=== PATIENT | male | born 1980 | race African-American/Black ===

== ENCOUNTER 2020-01-10 02:43 | Emergency (ER) | payer MEDICAID, OTHER ==
[~2020-01-10] VITALS: Ht 182.9 cm; Wt 83.9 kg
[2020-01-10] MEDS ORDERED: LET TOPICAL SOLUTION 8 ML UDC ONE (03:56)
[2020-01-10] MEDS ORDERED: NEOMY/BACITRA/POLYMYXIN B OINT UD PACKET TP ONE ×3 (04:54→05:00)
[2020-01-10] MEDS ORDERED: SODIUM BICARBONATE 4.2 % (NEUT) 5 ML VIAL TP ONE (05:00)
[2020-01-10] MEDS ORDERED: LIDOCAINE HCL 2% 20 ML VIAL TP ONE (05:00)
[2020-01-10] MEDS ORDERED: LET TOPICAL SOLUTION 8 ML UDC TP ONE (05:00)
[2020-01-10] MEDS ORDERED: HYDROCODONE/APAP 5-325MG TABLET ONE (05:03)
[2020-01-10] MEDS ORDERED: SULFAMETH/TRIMETH 800/160 MG TABLET ONE (05:06)
[2020-01-10 05:09] VITALS: BP 101/55
--- NOTE | 2020-01-10 05:09 | NUR ---
Patient discharged to home in stable conditon. Written and verbal after care instructions given. Patient verbalizes understanding of instructions. patient left with stable gait.
[2020-01-10] MEDS ORDERED: SULFAMETH/TRIMETH 800/160 MG TABLET PO ONE (05:15)
[2020-01-10] MEDS ORDERED: HYDROCODONE/APAP 5-325MG TABLET PO ONE (05:15)
== END 2020-01-10 05:10 | disposition home or self-care (01) ==
LOC: ER 02:43
DX: M79.5 Residual foreign body in soft tissue (principal)
CPT/HCPCS: 73140; 99284; J3490; A4663

== ENCOUNTER 2020-10-23 03:13 | Emergency (ER) | payer MEDICAID ==
[~2020-10-23] VITALS: Ht 182.9 cm; Wt 83.9 kg
[2020-10-23] MEDS ORDERED: AZITHROMYCIN 250 MG TABLET PO ONE (04:30)
[2020-10-23] MEDS ORDERED: CEFTRIAXONE 500 MG VIAL IM ONE (04:30)
[2020-10-23] MEDS ORDERED: CEFTRIAXONE 500 MG VIAL IV ONE (04:30)
[2020-10-23] MEDS ORDERED: AZITHROMYCIN 250 MG TABLET ONE (04:34)
[2020-10-23] MEDS ORDERED: CEFTRIAXONE 500 MG VIAL ONE (04:34)
[2020-10-23] MEDS ORDERED: LIDOCAINE HCL 1% 20 ML VIAL ONE (04:35)
--- NOTE | 2020-10-23 04:59 | NUR ---
PT ELOPED, DID NOT WAIT FOR ACI. AMBULATED W/O DIFF/TOOK ALL BELONGINGS.
--- NOTE | 2020-10-23 05:00 | NUR ---
PHARMACY NOTE; INITIALLY DR ORDERED ROCEFIN 250 MG IV PER MISTAKE. I BY MISTAKE CHARTED THAT IT WAS ADMISTERED. I THEN CHARTED ON ROCEFIN 250 MG IM INJECTION ADMINISTRASION. WHICH PT RECEIVED TO RT BUTTOCK.
--- NOTE | 2020-10-23 05:02 | NUR ---
ALL MEDS ADMINISTERED, PT AWAITING FOR LAB RESULTS.
[2020-11-01 09:58] LABS: *GC NAA Positive; *TRIC.VAG. NAA Negative
== END 2020-10-23 04:59 | disposition left against medical advice (07) ==
LOC: ER 03:23
DX: Z20.2 Contact with and (suspected) exposure to infections with a predominantly sexual mode of transmission (principal)
CPT/HCPCS: 87491; 96372; 99283; J0696; J3490; A4663; Q0144

== ENCOUNTER 2022-01-07 17:08 | Emergency (ER) | payer MEDICAID ==
[~2022-01-07] VITALS: Ht 182.9 cm; Wt 86.2 kg
--- NOTE | 2022-01-07 18:00 | NUR ---
Pt provided urine sample, sent to lab.
[2022-01-07] MEDS ORDERED: FLUORESCEIN SODIUM 1 MG STRIP OP ONE (19:00)
[2022-01-07] MEDS ORDERED: FLUORESCEIN SODIUM 1 MG STRIP ONE (19:11)
[2022-01-07] MEDS ORDERED: TETRACAINE HCL 0.5% OPHT DROP 2 ML BOTTLE ONE (19:15)
[2022-01-07] MEDS ORDERED: TETRACAINE HCL 0.5% OPHT DROP 2 ML BOTTLE OP ONE (19:15)
[2022-01-07] MEDS ORDERED: VALA10002 PO (19:24)
[2022-01-07] MEDS ORDERED: AZITHROMYCIN 250 MG TABLET PO ONE (19:30)
[2022-01-07] MEDS ORDERED: AZITHROMYCIN 250 MG TABLET ONE (19:46)
--- NOTE | 2022-01-07 19:47 | NUR ---
Patient discharged to home in stable condition. Written and verbal after care instructions given. Patient verbalizes understanding of instructions. Stressed follow up or return to ER for worsening s/s.
[2022-01-07 19:48] VITALS: BP 128/77
== END 2022-01-07 19:49 | disposition home or self-care (01) ==
LOC: ER 17:13
DX: H10.9 Unspecified conjunctivitis (principal); A64 Unspecified sexually transmitted disease
CPT/HCPCS: A4663; Q0144

== ENCOUNTER 2024-06-23 04:31 | Emergency (ER) | payer MEDICAID, OTHER ==
[~2024-06-23] VITALS: Ht 182.9 cm; Wt 90.7 kg
[~2024-06-23 04:31] MED LIST: VALA10002 PO
[2024-06-23] MEDS: TDAP DIPH,PERTUSS,TET VAC/PF 0.5 ML DISP.SYRIN IM ONE (05:06)
[2024-06-23] MEDS ORDERED: CEFTRIAXONE 1 G VIAL ONE (05:09)
[2024-06-23] MEDS ORDERED: SULFAMETH/TRIMETH 800/160 MG TABLET ONE (05:09)
[2024-06-23] MEDS ORDERED: LIDOCAINE HCL 1% 20 ML VIAL ONE (05:09)
[2024-06-23] MEDS ORDERED: IBUPROFEN 600 MG TABLET ONE (05:09)
[2024-06-23] MEDS ORDERED: ONDANSETRON ODT 4 MG TAB.RAPDIS ONE (05:09)
[2024-06-23] MEDS ORDERED: HYDROCODONE/APAP 5-325MG TABLET ONE (05:10)
[2024-06-23] MEDS: CEFTRIAXONE 1 G VIAL IM ONE (05:17)
[2024-06-23] MEDS: ONDANSETRON ODT 4 MG TAB.RAPDIS SL ONE (05:17)
[2024-06-23] MEDS: IBUPROFEN 600 MG TABLET PO ONE (05:17)
[2024-06-23] MEDS: HYDROCODONE/APAP 5-325MG TABLET PO ONE (05:17)
[2024-06-23] MEDS: SULFAMETH/TRIMETH 800/160 MG TABLET PO ONE (05:17)
[2024-06-23] MEDS ORDERED: SULF1TAB48 PO (06:35)
[2024-06-23] MEDS ORDERED: HYDR-4209 PO (06:35)
[2024-06-23] MEDS ORDERED: CEPH500T PO (06:35)
[2024-06-23] MEDS ORDERED: HYDR-3980 PO (06:46)
[2024-06-23 06:52] VITALS: BP 126/85; O2SAT 97
== END 2024-06-23 06:52 | disposition home or self-care (01) ==
LOC: ER 04:37
DX: L03.115 Cellulitis of right lower limb (principal); J45.909 Unspecified asthma, uncomplicated; F17.200 Nicotine dependence, unspecified, uncomplicated; Z98.890 Other specified postprocedural states; Z79.891 Long term (current) use of opiate analgesic; Z79.899 Other long term (current) drug therapy
CPT/HCPCS: 99285; 93971; 96372; J0696; J3490; A4606; A4663; Q0162

== ENCOUNTER 2024-06-25 04:08 | Emergency (ER) | payer MEDICAID ==
[~2024-06-25] VITALS: Ht 182.9 cm; Wt 90.7 kg
[~2024-06-25 04:08] MED LIST changes: +CEPH500T PO; +HYDR-3980 PO; +SULF1TAB48 PO
[2024-06-25 04:50] LABS: BASOPHILS % (AUTO) 0.2 % (0.0-2.0); EOSINOPHILS # (AUTO) 0.7 K/uL (0.0-0.7); EOSINOPHILS % (AUTO) 3.4 % (0.0-7.0); HEMATOCRIT 37.4 % (36.7-47.1); HEMOGLOBIN 12.1 g/dL (12.5-16.3); LYMPHOCYTES # (AUTO) 1.7 K/uL (0.8-4.8); LYMPHOCYTES % (AUTO) 8.5 % (20.5-51.5); MEAN CORPUSCULAR HEMOGLOBIN 25.1 uug (23.8-33.4); MEAN CORPUSCULAR HGB CONC 32 g/dL (32.5-36.3); MEAN CORPUSCULAR VOLUME 77.3 fL (73.0-96.2); MONOCYTES # (AUTO) 1.3 K/uL (0.1-1.30); MONOCYTES % (AUTO) 6.4 % (0.0-11.0); NEUTROPHILS # (AUTO) 16.6 K/uL (1.8-8.9); NEUTROPHILS % (AUTO) 81.5 % (38.5-71.5); PLATELET COUNT (AUTO) 212 K/uL (152-348); RED BLOOD CELL COUNT(AUTO) 4.84 MIL/uL (4.06-5.63); WHITE BLOOD COUNT (AUTO) 20.4 K/uL (3.6-10.2)
[2024-06-25] MEDS: IV NORMAL SALINE 1000 ML BAG IV ONE (05:05)
[2024-06-25 05:13] LABS: ALBUMIN 3.1 g/dL (3.4-5.0); BILIRUBIN,DIRECT 0.1 mg/dL (0.0-0.2); BILIRUBIN,TOTAL 0.4 mg/dL (0.2-1.0); POTASSIUM 3.7 mmol/L (3.5-5.1); TOTAL PROTEIN, SERUM 8.1 g/dL (6.4-8.2)
[2024-06-25] MEDS ORDERED: CEFTRIAXONE 1 G VIAL ONE (05:13)
[2024-06-25] MEDS: CEFTRIAXONE 2 G in IV DEXTROSE 5% 100 ML IV ONE (05:15)
[2024-06-25 05:39] LABS: DIFFERENTIAL COMMENT 1
[2024-06-25] MEDS ORDERED: IOHEXOL 300MG/ML 100 ML INFUS..BTL ONE (05:58)
[2024-06-25] MEDS ORDERED: SWABABLE VALVE TRANSFER SET EA MC ONE (05:58)
[2024-06-25] MEDS ORDERED: IV NORMAL SALINE 250 ML IV ONE (05:59)
[2024-06-25] MEDS ORDERED: SULF1TAB48 PO (09:15)
[2024-06-25 09:34] VITALS: BP 124/69; TEMP 97.9; O2SAT 100
[2024-06-25] MEDS ORDERED: VANCOMYCIN IV 200 ML ONE (22:26)
[2024-06-25] MEDS ORDERED: VANCOMYCIN HCL 500 MG VIAL ONE (22:28)
[2024-06-28] MEDS ORDERED: LIDOCAINE 1%-EPI 1:100,000 20 ML VIAL ONE (20:29)
== END 2024-06-25 09:30 | disposition home or self-care (01) ==
LOC: ER 04:13
DX: L03.115 Cellulitis of right lower limb (principal); J45.909 Unspecified asthma, uncomplicated; F17.200 Nicotine dependence, unspecified, uncomplicated; Z98.890 Other specified postprocedural states; Z79.891 Long term (current) use of opiate analgesic; Z79.899 Other long term (current) drug therapy
CPT/HCPCS: 99285; 96365; 73701; 80076; 80048; 85025; 87040; 36415; 83605; J0696; Q9967; J3370; J7040; A4606; A4663

== ENCOUNTER 2024-06-25 15:56 | Inpatient (IN) | payer MEDICAID ==
[~2024-06-25] VITALS: Ht 180.3 cm; Wt 90.7 kg
--- NOTE | 2024-06-25 16:47 | NUR ---
returning patient from this morning with cellulitis to right lower extremity, alert and oriented x4, iv placement at this time
--- NOTE | 2024-06-25 16:54 | NUR ---
report zacharyt renita CONDON rn at this time, patient to go to room 322
[2024-06-25] MEDS ORDERED: ONDANSETRON 4 MG/2 ML VIAL ONE (17:00)
[2024-06-25] MEDS ORDERED: MORPHINE SULFATE 4 MG/1 ML DISP.SYRIN ONE (17:00)
[2024-06-25] MEDS: MORPHINE SULFATE 4 MG/1 ML DISP.SYRIN IV ONE (17:07)
[2024-06-25] MEDS: ONDANSETRON 4 MG/2 ML VIAL IV ONE (17:07)
--- NOTE | 2024-06-25 17:36 | NUR ---
patient transported at this time
[2024-06-25] MEDS ORDERED: MAGNESIUM HYDROXIDE 30 ML LIQUID UDC PO PRN (19:45)
[2024-06-25] MEDS ORDERED: ACETAMINOPHEN 325 MG TABLET PO PRN (19:45)
[2024-06-25] MEDS ORDERED: ONDANSETRON 4 MG/2 ML VIAL IV PRN (19:45)
[2024-06-25 20:55] VITALS: BP 107/57; TEMP 99.2; O2SAT 98
[2024-06-25] MEDS: HEPARIN SODIUM,PORCINE 5,000 UNITS/ML VIAL SQ SCH (21:32)
[2024-06-25] MEDS: HYDROCODONE/APAP 10-325 MG TABLET PO PRN (22:06)
[2024-06-25] MEDS ORDERED: PIPERACILLIN/TAZOBACTAM/D5W 50 ML IV ONE (22:38)
[2024-06-26] MEDS: VANCOMYCIN HCL IV SCH (00:03)
[2024-06-26] MEDS: NORMAL SALINE IV SCH (00:03)
[2024-06-26] MEDS: PIPERACILLIN SODIUM/TAZOBACTAM 3.375 G in IV DEXTROSE 5% 50 ML IV SCH ×2 (02:36→08:40)
--- NOTE | 2024-06-26 05:57 | NUR ---
Pt received in bed. Alert oriented x4. IV site on his R hand patent He received all his meds. requested pain medication for his R ALPHONSE pain. after medication pt had a rest. IV antibiotic vancomycin was prepared and could not scan, put an manual barcode lot number [id number] exp March 2026.Pt tolerated well. Physical assessment was done, Care plan was done. Will monitored..
[2024-06-26] MEDS: PANTOPRAZOLE SODIUM 40 MG TABLET.DR PO SCH (07:01)
--- NOTE | 2024-06-26 07:05 | NUR ---
pt's temperature was 100.4. he refused Tylenol. upcoming nurse endorsed.
[2024-06-26 07:08] VITALS: BP 123/71; TEMP 100.4; O2SAT 99
--- NOTE | 2024-06-26 07:30 | NUR ---
0730 PT LAYING IN THE BED A/O X4 ON RA NO SOB OR DISTRESS NOTED, COMPLAIN OF PAIN IN THE RIGHT LOWER EXTREMITY. RLE IS SWOLLEN WITH ULCER PRESENTS, WARM TO TOUCH. IV SITE IS INTACT AND PATENT. SAFETY MEASURES IN PLACE, CALL LIGHT IN REACH. 0800 NORCO WAS GIVEN FOR RLE PAIN 8 REASSESSMENT:PAIN 610
[2024-06-26 07:56] LABS: BASOPHILS # (AUTO) 0.1 K/UL (0.0-0.2); BASOPHILS % (AUTO) 0.8 % (0.0-2.0); EOSINOPHILS # (AUTO) 0.6 K/uL (0.0-0.7); EOSINOPHILS % (AUTO) 4.4 % (0.0-7.0); HEMATOCRIT 41.3 % (36.7-47.1); HEMOGLOBIN 13.3 g/dL (12.5-16.3); LYMPHOCYTES # (AUTO) 1.3 K/uL (0.8-4.8); MEAN CORPUSCULAR HGB CONC 32 g/dL (32.5-36.3); MEAN CORPUSCULAR VOLUME 77.4 fL (73.0-96.2); MONOCYTES # (AUTO) 1.1 K/uL (0.1-1.30); MONOCYTES % (AUTO) 7.5 % (0.0-11.0); NEUTROPHILS # (AUTO) 11.4 K/uL (1.8-8.9); NEUTROPHILS % (AUTO) 78.3 % (38.5-71.5); PLATELET COUNT (AUTO) 231 K/uL (152-348); RED BLOOD CELL COUNT(AUTO) 5.33 MIL/uL (4.06-5.63); RED CELL DISTRIBUTION WIDTH 18.5 % (12.1-16.2); WHITE BLOOD COUNT (AUTO) 14.5 K/uL (3.6-10.2)
[2024-06-26 08:04] LABS: DIFFERENTIAL COMMENT 1
[2024-06-26 08:12] LABS: ALBUMIN 2.9 g/dL (3.4-5.0); BILIRUBIN,TOTAL 0.6 mg/dL (0.2-1.0); CREATININE 1.1 mg/dL (0.6-1.3); MAGNESIUM 2.2 mg/dL (1.8-2.4); PHOSPHOROUS 3.7 mg/dL (2.5-4.9); POTASSIUM 4.2 mmol/L (3.5-5.1); TOTAL PROTEIN, SERUM 8.4 g/dL (6.4-8.2)
[2024-06-26 11:01] VITALS: BP 99/57; TEMP 98.1; O2SAT 96
[2024-06-26] MEDS: VANCOMYCIN HCL 1,500 MG in IV DEXTROSE 5% 500 ML IV SCH (11:57)
--- NOTE | 2024-06-26 13:00 | NUR ---
PLACED ORDER FOR PLASTIC SURGEON PATCHA, ACCORDING TO ORDER
--- NOTE | 2024-06-26 14:13 | NUR ---
1413 NORCO WAS GIVEN FOR RLE PAIN 06/06
[2024-06-26] MEDS ORDERED: DEXTROSE 50% 50 ML DISP.SYRIN IV PRN (14:15)
--- NOTE | 2024-06-26 14:50 | NUR ---
RLE GOT MORE SWOLLEN, WARM TO TOUCH, PT COMPLAIN OF PAIN. MD NOTIFIED
[2024-06-26 16:01] VITALS: BP 105/68; TEMP 98.9
[2024-06-26] MEDS: BLOOD SUGAR DIAGNOSTIC 1 EACH STRIP VI SCH (16:03)
[2024-06-26] MEDS: HYDROMORPHONE 1 MG/1 ML DISP.SYRIN IV PRN (16:07)
[2024-06-26] MEDS: INSULIN REGULAR, HUMAN 1000 UNIT/10 ML VIAL SQ PRN (16:49)
--- NOTE | 2024-06-26 18:15 | NUR ---
1608 DILAUDID WAS ADMINISTERED FOR RLE PAIN LEVEL 9/10 RLE SWOLLEN, ULCER OPENED UP, BLEEDING. MD NOTIFIED. DRESSING APPLIED PT SEEN BY THE MD. WOUND CULTURE COLLECTED, SENT TO THE LAB CONSENT FOR CT LOWER EXTREMITY W/ SIGNED AND PLACED IN THE CHART
[2024-06-26] MEDS ORDERED: IV NORMAL SALINE 250 ML IV ONE (19:03)
[2024-06-26] MEDS ORDERED: SWABABLE VALVE TRANSFER SET EA MC ONE (19:03)
[2024-06-26] MEDS ORDERED: IOHEXOL 300MG/ML 100 ML INFUS..BTL ONE (19:04)
--- NOTE | 2024-06-26 19:05 | NUR ---
[address] of lower extremity w/
[2024-06-26 20:00] VITALS: BP 101/61; TEMP 98.2; O2SAT 98
--- NOTE | 2024-06-26 22:30 | NUR ---
Report was given to Ashlee SINCLAIR d/t assignment change.During my shift he got his IV Zosyn after he came from his CT for his R ALPHONSE with the contrast. and all his scheduled evening meds: Humulin R 2 units d/t BS of 158mg/dl, and his scheduled Heparin subcutaneously.Tolerated well.
--- NOTE | 2024-06-26 22:43 | NUR ---
PATIENT ENDORSED TO ME BY NAZ FAJARDO R/T CHANGE OF ASSIGNMENT. PATIENT IS CURRENTLY STABLE AND REQUESTED PRN DILAUDID R/T 07/07 RLE PAIN. RN ADMINISTERED ORDERED. SAFETY MEASURES IMPLEMENTED.
[2024-06-27 05:30] VITALS: BP 114/64; TEMP 99; O2SAT 96
--- NOTE | 2024-06-27 07:37 | NUR ---
PATIENT LEG WOUND DRAINING SEROSANGUINEOUS FLUID. DRESSING CHANGED X 2. RN GAVE PRN DILAUDID ORDERED FOR 10/10 PAIN. SAFETY MEASURES IMPLEMENTED.
[2024-06-27 07:53] LABS: BASOPHILS # (AUTO) 0.1 K/UL (0.0-0.2); BASOPHILS % (AUTO) 0.8 % (0.0-2.0); EOSINOPHILS # (AUTO) 1.4 K/uL (0.0-0.7); EOSINOPHILS % (AUTO) 12.7 % (0.0-7.0); HEMATOCRIT 37.3 % (36.7-47.1); HEMOGLOBIN 12.2 g/dL (12.5-16.3); LYMPHOCYTES # (AUTO) 1.7 K/uL (0.8-4.8); LYMPHOCYTES % (AUTO) 15.6 % (20.5-51.5); MEAN CORPUSCULAR HEMOGLOBIN 25.3 uug (23.8-33.4); MEAN CORPUSCULAR HGB CONC 33 g/dL (32.5-36.3); MEAN CORPUSCULAR VOLUME 77.6 fL (73.0-96.2); MONOCYTES # (AUTO) 0.8 K/uL (0.1-1.30); MONOCYTES % (AUTO) 7.6 % (0.0-11.0); NEUTROPHILS # (AUTO) 6.7 K/uL (1.8-8.9); NEUTROPHILS % (AUTO) 63.3 % (38.5-71.5); PLATELET COUNT (AUTO) 238 K/uL (152-348); RED BLOOD CELL COUNT(AUTO) 4.81 MIL/uL (4.06-5.63); RED CELL DISTRIBUTION WIDTH 18.3 % (12.1-16.2); WHITE BLOOD COUNT (AUTO) 10.6 K/uL (3.6-10.2)
[2024-06-27 08:01] LABS: DIFFERENTIAL COMMENT 1
[2024-06-27 08:06] LABS: MAGNESIUM 2.1 mg/dL (1.8-2.4); PHOSPHOROUS 3.4 mg/dL (2.5-4.9)
--- NOTE | 2024-06-27 09:00 | NUR ---
patient is alert, oriented x4, no sob, respirations are even nonlabored, skin warm and dry to touch, patient ask for two milks and two apples juices, this scenario writer educated patient on diabetic diet. patient was not happy about not getting two apples juices and two milks. patient IV access was leaking, discontinued, IV site was cleaned with gauze, patient said that this scenario writer is cleaning IV site with dirty gauze, this scenario writer explained that gauze is clean. this scenario writer offered patient to start IV, patient stated no. this scenario writer called warehouse forklift operator for midline, and called ER if anyone is available to start IV. this scenario writer also called Rebecca Jayden if anyone is available to start IV. Explained to patient that let us try start new IV, patient stated no. patient went downstairs to talk to supervisor brake repair.
--- NOTE | 2024-06-27 11:26 | NUR ---
MIDLINE IS IN ON LEFT UPPER ARM, ATB RESUMED.
[2024-06-27 11:31] LABS: CALCIUM 9.5 mg/dL (8.5-10.1); CREATININE 1.1 mg/dL (0.6-1.3); MAGNESIUM 2.3 mg/dL (1.8-2.4); PHOSPHOROUS 3.1 mg/dL (2.5-4.9); POTASSIUM 4.4 mmol/L (3.5-5.1); VANCOMYCIN,TROUGH 10.3 ug/mL (10.0-20.0)
[2024-06-27 11:34] VITALS: BP 117/81; TEMP 98.9; O2SAT 95
--- NOTE | 2024-06-27 13:14 | NUR ---
wound consult done with dr Terry, dr alfaro is aware as well
[2024-06-27 16:03] VITALS: BP 108/68; TEMP 98.2; O2SAT 96
[2024-06-27 21:55] VITALS: BP 107/63; TEMP 98.6; O2SAT 97
[2024-06-28 05:47] VITALS: BP 122/80; TEMP 98.6; O2SAT 97
[2024-06-28 06:25] LABS: BASOPHILS % (AUTO) 0.5 % (0.0-2.0); EOSINOPHILS # (AUTO) 1.2 K/uL (0.0-0.7); EOSINOPHILS % (AUTO) 17.2 % (0.0-7.0); HEMATOCRIT 39.3 % (36.7-47.1); HEMOGLOBIN 12.7 g/dL (12.5-16.3); LYMPHOCYTES # (AUTO) 1.9 K/uL (0.8-4.8); LYMPHOCYTES % (AUTO) 28.8 % (20.5-51.5); MEAN CORPUSCULAR HEMOGLOBIN 24.9 uug (23.8-33.4); MEAN CORPUSCULAR HGB CONC 32 g/dL (32.5-36.3); MONOCYTES # (AUTO) 0.9 K/uL (0.1-1.30); MONOCYTES % (AUTO) 13.4 % (0.0-11.0); NEUTROPHILS # (AUTO) 2.7 K/uL (1.8-8.9); NEUTROPHILS % (AUTO) 40.1 % (38.5-71.5); PLATELET COUNT (AUTO) 293 K/uL (152-348); RED CELL DISTRIBUTION WIDTH 18.5 % (12.1-16.2); WHITE BLOOD COUNT (AUTO) 6.7 K/uL (3.6-10.2)
[2024-06-28 06:32] LABS: DIFFERENTIAL COMMENT 1
[2024-06-28 06:39] LABS: ALBUMIN 2.4 g/dL (3.4-5.0); BILIRUBIN,TOTAL 0.5 mg/dL (0.2-1.0); MAGNESIUM 2.2 mg/dL (1.8-2.4); PHOSPHOROUS 4.6 mg/dL (2.5-4.9); TOTAL PROTEIN, SERUM 7.9 g/dL (6.4-8.2)
--- NOTE | 2024-06-28 08:32 | NUR ---
RECEIVED PATIENT IN BED, ALERT ORIENTED X4, WITH NO ACUTE DISTRESS NOTED. CONTINUE ON ROOM AIR. NOTED WITH RIGHT LEG CELLULITIS WITH DRESSING IN PLACE. WILL CONTINUE TO MONITOR.
[2024-06-28 11:51] VITALS: BP 111/72; TEMP 97.9; O2SAT 97
[2024-06-28 16:04] VITALS: BP 118/72; TEMP 97.7; O2SAT 97
[2024-06-28] MEDS: METFORMIN XR 500 MG TAB.SR.24H PO SCH (18:06)
--- NOTE | 2024-06-28 18:35 | NUR ---
PATIENT IN BED, ALERT ORIENTED X4, WITH NO ACUTE DISTRESS NOTED. CONTINUE ON ROOM AIR. NOTED WITH RIGHT LEG CELLULITIS DRESSING CHANGE DONE, PUS DISCHARGE NOTED DURING DRESSING CHANGE, DR. BRUNO OBSERVED THE DISCHARGE AND NOTIFIED SURGICAL CONSULT FOR POSSIBLE INCISION AND DRAINAGE. WILL CONTINUE TO MONITOR.
--- NOTE | 2024-06-28 20:00 | NUR ---
NSG: RECEIVED PT LYING IN BED ALERT AND ORIENTED X4, PLEASANT UPON APPROACH. NO RESPIRATORY DISTRESS NOTED. DRESSING ON RIGHT LEG INTACT. DENIES PAIN OR DISCOMFORT AT THIS TIME.CALL LIGHT W/IN REACH.
--- NOTE | 2024-06-28 20:14 | NUR ---
tammy Larry called and ordered supply and meds for bedside procedure. order received and carryout. charge nurse made aware.
[2024-06-28 20:39] VITALS: BP 104/67; TEMP 99.1; O2SAT 94
--- NOTE | 2024-06-29 | NUR ---
Nsg: came and performed I&D to patient's right leg. pt tolerated well. derssing c/d/i. charge nurse made aware.
[2024-06-29] MEDS: LIDOCAINE 1%-EPI 1:100,000 20 ML VIAL IJ ONE (00:10)
--- NOTE | 2024-06-29 04:06 | NUR ---
nsg: resting in bed comfortably. denies pain and discomfort at this time. dressing on right leg c/d/i. uses urinal. bmx1 last night. patient ambulate to bathroom with slow steady gait. call light w/in reach.
[2024-06-29 06:05] VITALS: BP 110/64; TEMP 98.6; O2SAT 95
--- NOTE | 2024-06-29 09:22 | NUR ---
MEDICATED WITH DILAUDISD FOR RIGHT LEG PAIN 06/06 WILL OBSERVE
[2024-06-29 11:33] LABS: CREATININE 1.1 mg/dL (0.6-1.3); POTASSIUM 4.2 mmol/L (3.5-5.1); VANCOMYCIN,TROUGH 10.1 ug/mL (10.0-20.0)
[2024-06-29 11:42] LABS: BASOPHILS % (AUTO) 0.6 % (0.0-2.0); EOSINOPHILS # (AUTO) 0.6 K/uL (0.0-0.7); EOSINOPHILS % (AUTO) 10.8 % (0.0-7.0); HEMATOCRIT 38.7 % (36.7-47.1); HEMOGLOBIN 12.5 g/dL (12.5-16.3); LYMPHOCYTES # (AUTO) 1.2 K/uL (0.8-4.8); LYMPHOCYTES % (AUTO) 21.3 % (20.5-51.5); MEAN CORPUSCULAR HEMOGLOBIN 24.8 uug (23.8-33.4); MEAN CORPUSCULAR HGB CONC 32 g/dL (32.5-36.3); MEAN CORPUSCULAR VOLUME 76.9 fL (73.0-96.2); MONOCYTES # (AUTO) 0.6 K/uL (0.1-1.30); MONOCYTES % (AUTO) 11.5 % (0.0-11.0); NEUTROPHILS % (AUTO) 55.8 % (38.5-71.5); PLATELET COUNT (AUTO) 307 K/uL (152-348); RED BLOOD CELL COUNT(AUTO) 5.04 MIL/uL (4.06-5.63); RED CELL DISTRIBUTION WIDTH 18.7 % (12.1-16.2); WHITE BLOOD COUNT (AUTO) 5.4 K/uL (3.6-10.2)
[2024-06-29 11:45] VITALS: BP 100/61; TEMP 97.9; O2SAT 97
[2024-06-29 11:47] LABS: DIFFERENTIAL COMMENT 1
--- NOTE | 2024-06-29 15:01 | NUR ---
MEDICATED WITH DILAUDID FOR PAIN DURING DRESSING CHARGE 06/06 WILL OBSERVE
[2024-06-29 15:50] VITALS: BP 100/67; TEMP 97.9; O2SAT 97
--- NOTE | 2024-06-29 17:59 | NUR ---
continue with iv atb as ordered, pain management.
[2024-06-29 19:00] VITALS: BP 118/71; TEMP 98.1; O2SAT 97
--- NOTE | 2024-06-29 20:52 | NUR ---
Patient complaining of pain at midline on left upper arm. Flushing the line only causes more pain. He is demanding to take it out and threatening to take it out himself. Unable to infuse due IV antibiotics. He is also requesting PRN pain medication but it is also IV.
--- NOTE | 2024-06-29 21:16 | NUR ---
Patient became angry when CN tried to assess midline. Again demanded it be removed. Line was removed. Midline catheter intact. No bleeding noted. Will start new peripheral IV site.
--- NOTE | 2024-06-29 21:55 | NUR ---
New peripheral IV site on left hand. Zosyn was administered.
[2024-06-29] MEDS: VANCOMYCIN HCL 1,500 MG in IV DEXTROSE 5% 500 ML IV SCH (22:52)
[2024-06-30] MEDS: PIPERACILLIN SODIUM/TAZOBACTAM 3.375 G in IV DEXTROSE 5% 50 ML IV SCH (04:39)
[2024-06-30 06:00] VITALS: BP 123/70; TEMP 98.5; O2SAT 94
--- NOTE | 2024-06-30 07:30 | NUR ---
MADE INITIAL ROUND. PATIENT WAS UPSET ASKING ABOUT THE DOCTOR AND WHAT ARE THEY GONNA DO WITH HIM. I EXPLAINED THAT THE MD HAS NOT COME YET BUT CHARGE NURSE IS AWARE THAT HE WANTS TO TALK TO THE MD ODALIS. HE SAID THAT THE HOSPITAL IS JUST GETTING MONEY FROM HIS INSURANCE BECAUSE HE WAS TOLD THE HE IS ONLY STAYING FOR 3 DAYS AND ITS ALREADY 5 DAYS. PATIENT WAS VERBALLY ABUSIVE USING "FUCK" EVERY TIME HE TALKS.
--- NOTE | 2024-06-30 08:00 | NUR ---
VITAL SIGNS CHECKED BUT STILL VERY AGGRESSIVE AND HE EVEN TOLD THE STUDENT NURSE TO GET OUT OF HIS SIGHT.
[2024-06-30 08:15] VITALS: BP 120/56; TEMP 98.5; O2SAT 94
--- NOTE | 2024-06-30 08:30 | NUR ---
COMPLAINED ABOUT THE BREAKFAST TRAY AND ACCORDING TO PATIENT HE WANTS KOSHER BREAKFAST. NEW BREAKFAST TRAY GIVEN. STILL VERY UNHAPPY AND VERY AGGRESSIVE.
--- NOTE | 2024-06-30 09:01 | NUR ---
HEPARIN GIVEN BUT TOOK A LOT OF CONVINCING TO BE ABLE TO GIVE IT. IV ATB GIVEN. PRIMING DONE BUT PER PATIENT THERE WAS A BUBBLE SO HE IMMEDIATELY REMOVED HIS IV. HE IS UPSET AND WANTED TO TALKED TO THE INDUSTRIAL SWEEPER CLEANER/CHARGE. CHARGE NURSE MADE AWARE.
--- NOTE | 2024-06-30 09:40 | NUR ---
PATIENT CALLED HIS FRIEND AND VERBALIZED WANTING TO LEAVE. INFORMED THE SECURITY BECAUSE PATIENT WENT OUT OF THE ROOM ALL OF THE SUDDEN. OFFERED AMA FORM TO SIGN BUT HE DOES NOT WANT TO SIGN. PATIENT VERY AGGRESSIVE AND AGITATED.
--- NOTE | 2024-06-30 10:10 | NUR ---
PATIENT CAME BACK IN THE ROOM.
--- NOTE | 2024-06-30 11:10 | NUR ---
PATIENT COMPLAINED OF HIS LEG THAT IS ACCORDING TO HER BLEEDING. OFFERED TO CLEAN AND HAVE IT CHANGED. PATIENT STARTED YELLING, CURSING, AND GETTING SO AGITATED AND AGGRESSIVE. BEVERLY ANDERSON WAS CALLED.
--- NOTE | 2024-06-30 11:25 | NUR ---
CODE JUSTIN WAS CLEARED. PATIENT WANTED TO BE SOME MINUTES TO BE ALONE AND THINK.
[2024-06-30 11:36] VITALS: BP 121/70; TEMP 97.9; O2SAT 96
--- NOTE | 2024-06-30 11:40 | NUR ---
PATIENT LEFT THE UNIT AGAINST MEDICAL ADVICE BUT HE DOES NOT WANT TO SIGN IT. NO IV ACCESS. PATIENT DOES NOT WANT TO REMOVE WRIST BAND THEN SECURITY WAS CALLED BUT PATIENT TOOK THE BACK DOOR EXIT. ., HI LIFT OPERATOR, CONCRETE INSPECTOR NOTIFIED.
== END 2024-06-30 11:40 | disposition left against medical advice (07) | DRG 710 ==
LOC: ER 15:57 → MEDSURG3 17:23
PROVIDERS: ADMIT Internal Medicine; ATTEND Internal Medicine
PROC: 05HF33Z Insertion of Infusion Device into Left Cephalic Vein, Percutaneous Approach (ICD-10-PCS; principal; 2024-06-27)
PROC: 0J9N0ZZ Drainage of Right Lower Leg Subcutaneous Tissue and Fascia, Open Approach (ICD-10-PCS; 2024-06-29)
DX: A41.9 Sepsis, unspecified organism (principal); E44.0 Moderate protein-calorie malnutrition; L03.115 Cellulitis of right lower limb; L02.415 Cutaneous abscess of right lower limb; F17.210 Nicotine dependence, cigarettes, uncomplicated; J45.909 Unspecified asthma, uncomplicated; E66.9 Obesity, unspecified; Z68.27 Body mass index [BMI] 27.0-27.9, adult; S80.861A Insect bite (nonvenomous), right lower leg, initial encounter; W57.XXXA Bitten or stung by nonvenomous insect and other nonvenomous arthropods, initial encounter; Y92.89 Other specified places as the place of occurrence of the external cause; E11.65 Type 2 diabetes mellitus with hyperglycemia; R60.9 Edema, unspecified
CPT/HCPCS: 36415; 83550; 83735; 84100; 85025; A4663; G0378; J1170; J1644; J1815; J2270; J2405; J2543; J3371; J3490; J7060; Q9967

== ENCOUNTER 2025-03-25 09:05 | Inpatient (IN) | payer MEDICAID ==
[~2025-03-25] VITALS: Ht 182.9 cm; Wt 83.1 kg
[2025-03-25 10:09] LABS: BASOPHILS % (AUTO) 0.2 % (0.0-2.0); EOSINOPHILS # (AUTO) 0.3 K/uL (0.0-0.7); EOSINOPHILS % (AUTO) 3.4 % (0.0-7.0); HEMATOCRIT 29.9 % (36.7-47.1); HEMOGLOBIN 9.3 g/dL (12.5-16.3); LYMPHOCYTES # (AUTO) 2.1 K/uL (0.8-4.8); LYMPHOCYTES % (AUTO) 24.9 % (20.5-51.5); MEAN CORPUSCULAR HEMOGLOBIN 20.6 uug (23.8-33.4); MEAN CORPUSCULAR HGB CONC 31 g/dL (32.5-36.3); MONOCYTES # (AUTO) 0.6 K/uL (0.1-1.30); MONOCYTES % (AUTO) 6.8 % (0.0-11.0); NEUTROPHILS # (AUTO) 5.5 K/uL (1.8-8.9); NEUTROPHILS % (AUTO) 64.7 % (38.5-71.5); PLATELET COUNT (AUTO) 267 K/uL (152-348); RED BLOOD CELL COUNT(AUTO) 4.53 MIL/uL (4.06-5.63); RED CELL DISTRIBUTION WIDTH 20.3 % (12.1-16.2); WHITE BLOOD COUNT (AUTO) 8.6 K/uL (3.6-10.2)
[2025-03-25 10:22] LABS: *BILIRUBIN,URIN NEGATIVE (NEGATIVE); *BLOOD, URINE NEGATIVE (NEGATIVE); *CLARITY,URINE CLEAR (CLEAR); *COLOR,URINE YELLOW (YELLOW); *KETONES,URINE NEGATIVE (NEGATIVE); *PROTEIN,URINE NEGATIVE (NEGATIVE); *UROBILINOGEN,URINE 0.2 E.U./dl (NORMAL); LEUKOCYTE ESTERASE ,URINE NEGATIVE (NEGATIVE); NITRITE, URINE NEGATIVE (NEGATIVE); PH,URINE 6.5 (5.0-8.0)
[2025-03-25 10:25] LABS: DIFFERENTIAL COMMENT 1; UGLUCOSE 2+ (NEGATIVE)
[2025-03-25 10:33] LABS: WBC,URINE NONE SEEN /HPF (0-3)
[2025-03-25] MEDS ORDERED: CEFAZOLIN 1 G VIAL ONE (10:42)
[2025-03-25] MEDS: CEFAZOLIN 1 G in IV DEXTROSE 5% 50 ML IV ONE (10:45)
[2025-03-25 11:04] LABS: CREATININE 0.9 mg/dL (0.6-1.3); POTASSIUM 3.6 mmol/L (3.5-5.1)
[2025-03-25 11:11] LABS: ALBUMIN 3.1 g/dL (3.4-5.0); BILIRUBIN,DIRECT 0.1 mg/dL (0.0-0.2); BILIRUBIN,TOTAL 0.3 mg/dL (0.2-1.0); TOTAL PROTEIN, SERUM 7.8 g/dL (6.4-8.2)
[2025-03-25 12:00] LABS: IRON, SERUM 23 ug/dL (50-175)
[2025-03-25 19:47] VITALS: BP 123/71; TEMP 98.4; O2SAT 99
[2025-03-25] MEDS ORDERED: DEXTROSE 50% 50 ML DISP.SYRIN IV PRN (20:30)
[2025-03-25] MEDS ORDERED: ONDANSETRON 4 MG/2 ML VIAL IV PRN (20:30)
[2025-03-25] MEDS ORDERED: PIPERACILLIN/TAZOBACTAM/D5W 50 ML IV ONE ×2 (20:39)
[2025-03-25] MEDS: BLOOD SUGAR DIAGNOSTIC 1 EACH STRIP VI SCH (21:00)
[2025-03-25] MEDS: HYDROCODONE/APAP 5-325MG TABLET PO PRN (21:03)
[2025-03-25] MEDS: PIPERACILLIN SODIUM/TAZOBACTAM 3.375 G in IV DEXTROSE 5% 50 ML IV SCH (21:16)
[2025-03-26] MEDS: PANTOPRAZOLE SODIUM 40 MG TABLET.DR PO SCH (06:26)
[2025-03-26] MEDS ORDERED: VANCOMYCIN IV 1,250 MG in IV DEXTROSE 5% 250 ML IV ONE (08:00)
[2025-03-26] MEDS: VANCOMYCIN IV 1,250 MG in IV DEXTROSE 5% 250 ML IV SCH (08:05)
[2025-03-26] MEDS: PIPERACILLIN SODIUM/TAZOBACTAM 3.375 G in IV DEXTROSE 5% 50 ML IV SCH (11:52)
[2025-03-26] MEDS ORDERED: PIPERACILLIN SODIUM/TAZOBACTAM 3.375 G in IV DEXTROSE 5% 50 ML IV SCH (14:00)
[2025-03-26 22:24] LABS: BASOPHILS % (AUTO) 0.1 % (0.0-2.0); EOSINOPHILS # (AUTO) 0.2 K/uL (0.0-0.7); EOSINOPHILS % (AUTO) 1.4 % (0.0-7.0); HEMATOCRIT 34.3 % (36.7-47.1); HEMOGLOBIN 10.6 g/dL (12.5-16.3); LYMPHOCYTES # (AUTO) 0.2 K/uL (0.8-4.8); LYMPHOCYTES % (AUTO) 1.2 % (20.5-51.5); MEAN CORPUSCULAR HEMOGLOBIN 20.2 uug (23.8-33.4); MEAN CORPUSCULAR HGB CONC 31 g/dL (32.5-36.3); MEAN CORPUSCULAR VOLUME 65.2 fL (73.0-96.2); MONOCYTES # (AUTO) 0.7 K/uL (0.1-1.30); MONOCYTES % (AUTO) 4.7 % (0.0-11.0); NEUTROPHILS # (AUTO) 14.4 K/uL (1.8-8.9); NEUTROPHILS % (AUTO) 92.6 % (38.5-71.5); PLATELET COUNT (AUTO) 315 K/uL (152-348); RED BLOOD CELL COUNT(AUTO) 5.27 MIL/uL (4.06-5.63); RED CELL DISTRIBUTION WIDTH 20.2 % (12.1-16.2); WHITE BLOOD COUNT (AUTO) 15.6 K/uL (3.6-10.2)
[2025-03-26 22:26] LABS: DIFFERENTIAL COMMENT 1
[2025-03-26 22:38] LABS: ALBUMIN 2.7 g/dL (3.4-5.0); BILIRUBIN,TOTAL 0.5 mg/dL (0.2-1.0); CALCIUM 8.6 mg/dL (8.5-10.1); CREATININE 2.2 mg/dL (0.6-1.3); MAGNESIUM 1.6 mg/dL (1.8-2.4); PHOSPHOROUS 2.6 mg/dL (2.5-4.9); POTASSIUM 4.6 mmol/L (3.5-5.1); TOTAL PROTEIN, SERUM 7.6 g/dL (6.4-8.2)
[2025-03-26 22:53] LABS: ANISOCYTOSIS 1+; BAND % (MANUAL) 4 % (0-10); EOSINOPHILS % (MANUAL) 3 % (0-8); HYPOCHROMASIA 1+; LYMPHOCYTES % (MANUAL) 2 % (20-40); MONOCYTES % (MANUAL) 3 % (2-10); NEUTROPHILS % (MANUAL) 88 % (42-75); PLATELET ESTIMATE ADEQUATE
[2025-03-26 22:54] LABS: STOMATOCYTES 1+; TARGET CELLS 1+
[2025-03-27 04:08] VITALS: BP 129/67; TEMP 98.4; O2SAT 96
[2025-03-27 10:31] LABS: CALCIUM 9.1 mg/dL (8.5-10.1); CREATININE 3.5 mg/dL (0.6-1.3); MAGNESIUM 1.8 mg/dL (1.8-2.4); PHOSPHOROUS 3.5 mg/dL (2.5-4.9); POTASSIUM 4.3 mmol/L (3.5-5.1)
[2025-03-27 10:39] LABS: VANCOMYCIN,TROUGH 35.3 ug/mL (10.0-20.0)
[2025-03-27] MEDS: IV NS 1000 ML 1,000 ML IV PRN (12:43)
[2025-03-28 07:00] LABS: BASOPHILS % (AUTO) 0.1 % (0.0-2.0); EOSINOPHILS # (AUTO) 0.7 K/uL (0.0-0.7); EOSINOPHILS % (AUTO) 11.6 % (0.0-7.0); HEMATOCRIT 31.3 % (36.7-47.1); HEMOGLOBIN 9.8 g/dL (12.5-16.3); LYMPHOCYTES # (AUTO) 1.5 K/uL (0.8-4.8); MEAN CORPUSCULAR HEMOGLOBIN 20.6 uug (23.8-33.4); MEAN CORPUSCULAR HGB CONC 31 g/dL (32.5-36.3); MEAN CORPUSCULAR VOLUME 65.8 fL (73.0-96.2); MONOCYTES # (AUTO) 0.5 K/uL (0.1-1.30); MONOCYTES % (AUTO) 7.8 % (0.0-11.0); NEUTROPHILS # (AUTO) 3.4 K/uL (1.8-8.9); NEUTROPHILS % (AUTO) 56.5 % (38.5-71.5); PLATELET COUNT (AUTO) 285 K/uL (152-348); RED BLOOD CELL COUNT(AUTO) 4.76 MIL/uL (4.06-5.63); RED CELL DISTRIBUTION WIDTH 20.4 % (12.1-16.2); WHITE BLOOD COUNT (AUTO) 6.1 K/uL (3.6-10.2)
[2025-03-28 07:23] LABS: DIFFERENTIAL COMMENT 1
[2025-03-28 07:39] LABS: ALBUMIN 2.4 g/dL (3.4-5.0); BILIRUBIN,TOTAL 0.2 mg/dL (0.2-1.0); CALCIUM 8.9 mg/dL (8.5-10.1); CREATININE 3.3 mg/dL (0.6-1.3); MAGNESIUM 2.1 mg/dL (1.8-2.4); POTASSIUM 3.8 mmol/L (3.5-5.1); TOTAL PROTEIN, SERUM 7.6 g/dL (6.4-8.2); VANCOMYCIN,RANDOM 15.3 ug/mL (20.0-30.0)
[2025-03-28] MEDS: GLIMEPIRIDE 2 MG TABLET PO SCH (08:41)
[2025-03-28] MEDS: VANCOMYCIN IV 1,250 MG in IV DEXTROSE 5% 250 ML IV ONE (10:28)
[2025-03-28 11:05] VITALS: BP 125/75; TEMP 98.8; O2SAT 98
[2025-03-28] MEDS: FERROUS SULFATE 325 MG TABEC PO SCH (13:11)
[2025-03-28] MEDS: ASCORBIC ACID 500 MG TABLET PO SCH (13:11)
[2025-03-28 14:23] LABS: ANISOCYTOSIS 2+; BAND % (MANUAL) 10 % (0-10); EOSINOPHILS % (MANUAL) 6 % (0-8); HYPOCHROMASIA 2+; LYMPHOCYTES % (MANUAL) 21 % (20-40); MONOCYTES % (MANUAL) 8 % (2-10); NEUTROPHILS % (MANUAL) 55 % (42-75); PLATELET ESTIMATE ADEQUATE
[2025-03-28 15:05] VITALS: BP 139/81; TEMP 97.8; O2SAT 97
[2025-03-28] MEDS: INSULIN REGULAR, HUMAN 1000 UNIT/10 ML VIAL SQ PRN (17:45)
[2025-03-28 19:10] VITALS: BP 128/75; TEMP 99; O2SAT 100
[2025-03-28 20:00] VITALS: BP 128/75; TEMP 98.9; O2SAT 100
[2025-03-28 21:20] LABS: *BILIRUBIN,URIN NEGATIVE (NEGATIVE); *CLARITY,URINE CLEAR (CLEAR); *COLOR,URINE LIGHT YELLOW (YELLOW); *KETONES,URINE NEGATIVE (NEGATIVE); *PROTEIN,URINE TRACE (NEGATIVE); *UROBILINOGEN,URINE 0.2 E.U./dl (NORMAL); LEUKOCYTE ESTERASE ,URINE NEGATIVE (NEGATIVE); NITRITE, URINE NEGATIVE (NEGATIVE); PH,URINE 5.5 (5.0-8.0); UGLUCOSE 2+ (NEGATIVE)
[2025-03-28 21:21] LABS: *BLOOD, URINE TRACE (NEGATIVE)
[2025-03-28 21:27] LABS: RBC,URINE 0-3 /HPF (0-3)
[2025-03-28 21:28] LABS: BACTERIA,URINE NONE SEEN /HPF (NONE SEEN); SQUAMOUS EPITHELIAL CELL,UR NONE SEEN /HPF (NONE SEEN); WBC,URINE 0-3 /HPF (0-3)
[2025-03-28 21:29] LABS: *CREATININE,URINE 28.2 mg/dL (30-125); *URINE TOTAL PROTEIN RANDOM 25.4 mg/dL (<150/24HR)
[2025-03-29] MEDS ORDERED: PIPERACILLIN SODIUM/TAZOBACTAM 3.375 G in IV DEXTROSE 5% 100 ML IV SCH (06:00)
[2025-03-29] MEDS: ACETAMINOPHEN 325 MG TABLET PO PRN (06:31)
[2025-03-29 06:36] VITALS: BP 113/63; TEMP 99; O2SAT 97
[2025-03-29 06:58] LABS: BASOPHILS % (AUTO) 0.3 % (0.0-2.0); DIFFERENTIAL COMMENT 0; EOSINOPHILS # (AUTO) 0.9 K/uL (0.0-0.7); EOSINOPHILS % (AUTO) 13.5 % (0.0-7.0); HEMOGLOBIN 9.9 g/dL (12.5-16.3); LYMPHOCYTES # (AUTO) 1.3 K/uL (0.8-4.8); LYMPHOCYTES % (AUTO) 18.2 % (20.5-51.5); MEAN CORPUSCULAR HEMOGLOBIN 20.8 uug (23.8-33.4); MEAN CORPUSCULAR HGB CONC 32 g/dL (32.5-36.3); MEAN CORPUSCULAR VOLUME 65.2 fL (73.0-96.2); MONOCYTES # (AUTO) 0.6 K/uL (0.1-1.30); MONOCYTES % (AUTO) 9.3 % (0.0-11.0); NEUTROPHILS # (AUTO) 4.1 K/uL (1.8-8.9); NEUTROPHILS % (AUTO) 58.7 % (38.5-71.5); PLATELET COUNT (AUTO) 275 K/uL (152-348); RED BLOOD CELL COUNT(AUTO) 4.75 MIL/uL (4.06-5.63); RED CELL DISTRIBUTION WIDTH 20.4 % (12.1-16.2); WHITE BLOOD COUNT (AUTO) 6.9 K/uL (3.6-10.2)
[2025-03-29 07:26] LABS: ALBUMIN 2.5 g/dL (3.4-5.0); BILIRUBIN,DIRECT 0.1 mg/dL (0.0-0.2); BILIRUBIN,TOTAL 0.2 mg/dL (0.2-1.0); CALCIUM 8.7 mg/dL (8.5-10.1); CREATININE 2.1 mg/dL (0.6-1.3); MAGNESIUM 1.8 mg/dL (1.8-2.4); PHOSPHOROUS 4.7 mg/dL (2.5-4.9); POTASSIUM 4.5 mmol/L (3.5-5.1); TOTAL PROTEIN, SERUM 7.7 g/dL (6.4-8.2); URIC ACID 2.9 mg/dL (3.5-7.2)
[2025-03-29 08:03] LABS: VANCOMYCIN,RANDOM 13.1 ug/mL (20.0-30.0)
[2025-03-29 08:13] LABS: THYROID STIMULATING HORMONE 1.226 mIU/mL (0.358-3.740)
[2025-03-29 08:56] LABS: ANISOCYTOSIS 2+; EOSINOPHILS % (MANUAL) 12 % (0-8); HYPOCHROMASIA 2+; LYMPHOCYTES % (MANUAL) 17 % (20-40); MONOCYTES % (MANUAL) 9 % (2-10); NEUTROPHILS % (MANUAL) 62 % (42-75); PLATELET ESTIMATE ADEQUATE
[2025-03-29 08:57] LABS: TARGET CELLS 1+; TEAR DROP CELLS 1+
[2025-03-29] MEDS: VANCOMYCIN IV 1,250 MG in IV DEXTROSE 5% 250 ML IV ONE (09:02)
[2025-03-29 11:15] VITALS: BP 113/63; TEMP 98.5; O2SAT 97
[2025-03-29] MEDS: CEFEPIME HCL 2 GM in IV DEXTROSE 5% 100 ML IV SCH (11:55)
[2025-03-30 04:06] LABS: HEPATITIS B CORE AB, IgM Negative (Negative); HEPATITIS B CORE AB, TOTAL Negative (Negative); HEPATITIS B SURFACE AG Negative (Negative); HEPATITIS Be ANTIGEN Negative (Negative); HEPATITIS C VIRUS ANTIBODY Non Reactive (Non Reactive)
[2025-03-30 06:10] LABS: PTH, INTACT 12 pg/mL (15-65)
[2025-03-30 10:09] LABS: HEPATITIS B SURFACE AB, QUAL Equivocal (.)
== END 2025-03-29 15:28 | disposition left against medical advice (07) | DRG 720 ==
LOC: ER 09:05 → MEDSURG3 18:07
PROVIDERS: ADMIT Internal Medicine; ATTEND Internal Medicine
PROC: 0H9GXZX Drainage of Left Hand Skin, External Approach, Diagnostic (ICD-10-PCS; principal; 2025-03-25)
PROC: 05HC33Z Insertion of Infusion Device into Left Basilic Vein, Percutaneous Approach (ICD-10-PCS; 2025-03-27)
DX: A41.9 Sepsis, unspecified organism (principal); N17.0 Acute kidney failure with tubular necrosis; E87.1 Hypo-osmolality and hyponatremia; M84.432A Pathological fracture, left ulna, initial encounter for fracture; D50.9 Iron deficiency anemia, unspecified; E11.65 Type 2 diabetes mellitus with hyperglycemia; F17.210 Nicotine dependence, cigarettes, uncomplicated; J45.909 Unspecified asthma, uncomplicated; L03.114 Cellulitis of left upper limb; S61.412S Laceration without foreign body of left hand, sequela; W26.8XXS Contact with other sharp object(s), not elsewhere classified, sequela; F32.A Depression, unspecified; Z59.02 Unsheltered homelessness; Z91.199 Patient's noncompliance with other medical treatment and regimen due to unspecified reason; Z53.29 Procedure and treatment not carried out because of patient's decision for other reasons; F19.11 Other psychoactive substance abuse, in remission; L02.512 Cutaneous abscess of left hand; R60.0 Localized edema
CPT/HCPCS: 36415; 70030-TC; 73130; 73200; 76770; 83550; 83735; 83970; 84100; 84155; 84165; 84300; 84443; 84550; 85025; 86704; 86705; 86706; 86803; 87040; 87340; 87350; 87521; A4606; A4663; G0378; J0690; J0692; J1815; J2543; J7040; J7050

== ENCOUNTER 2025-03-29 23:24 | Inpatient (IN) | payer MEDICAID ==
[~2025-03-29] VITALS: Ht 182.9 cm; Wt 83.0 kg
[2025-03-30 01:08] LABS: BASOPHILS % (AUTO) 0.5 % (0.0-2.0); DIFFERENTIAL COMMENT 0; EOSINOPHILS # (AUTO) 0.7 K/uL (0.0-0.7); EOSINOPHILS % (AUTO) 10.8 % (0.0-7.0); HEMATOCRIT 30.1 % (36.7-47.1); HEMOGLOBIN 9.4 g/dL (12.5-16.3); LYMPHOCYTES # (AUTO) 1.9 K/uL (0.8-4.8); LYMPHOCYTES % (AUTO) 30.9 % (20.5-51.5); MEAN CORPUSCULAR HEMOGLOBIN 20.3 uug (23.8-33.4); MEAN CORPUSCULAR HGB CONC 31 g/dL (32.5-36.3); MEAN CORPUSCULAR VOLUME 65.1 fL (73.0-96.2); MONOCYTES # (AUTO) 0.4 K/uL (0.1-1.30); MONOCYTES % (AUTO) 6.5 % (0.0-11.0); NEUTROPHILS # (AUTO) 3.1 K/uL (1.8-8.9); NEUTROPHILS % (AUTO) 51.3 % (38.5-71.5); PLATELET COUNT (AUTO) 271 K/uL (152-348); RED BLOOD CELL COUNT(AUTO) 4.62 MIL/uL (4.06-5.63); RED CELL DISTRIBUTION WIDTH 20.5 % (12.1-16.2); WHITE BLOOD COUNT (AUTO) 6.1 K/uL (3.6-10.2)
[2025-03-30] MEDS ORDERED: VANCOMYCIN HCL 500 MG VIAL ONE ×3 (01:09→05:04)
[2025-03-30] MEDS: VANCOMYCIN HCL 750 MG in IV DEXTROSE 5% 250 ML IV STA (01:29)
[2025-03-30 02:04] LABS: CARBON DIOXIDE 20 mmol/L (21-32); CHLORIDE 100 mmol/L (98-107); CREATININE 1.8 mg/dL (0.6-1.3); GLUCOSE 144 mg/dL (74-106); POTASSIUM 3.6 mmol/L (3.5-5.1); SODIUM SERUM 134 mmol/L (136-145); UREA NITROGEN, BLOOD 25 mg/dL (7-18)
[2025-03-30 02:16] LABS: ALANINE AMINOTRANSFERASE 42 U/L (16-63); ALBUMIN 2.9 g/dL (3.4-5.0); ALKALINE PHOSPHATASE 100 U/L (50-136); ASPARTATE AMINOTRANSFERASE 25 U/L (15-37); BILIRUBIN,DIRECT 0.1 mg/dL (0.0-0.2); BILIRUBIN,TOTAL 0.2 mg/dL (0.2-1.0); NT-PRO BNP 27 pg/mL (0-125); TOTAL PROTEIN, SERUM 8.1 g/dL (6.4-8.2)
[2025-03-30] MEDS ORDERED: HYDROCODONE/APAP 5-325MG TABLET PO PRN (03:00)
[2025-03-30] MEDS ORDERED: MAGNESIUM HYDROXIDE 30 ML LIQUID UDC PO PRN (03:00)
[2025-03-30] MEDS ORDERED: ONDANSETRON 4 MG/2 ML VIAL IV PRN (03:00)
[2025-03-30 03:42] LABS: ANISOCYTOSIS 2+; EOSINOPHILS % (MANUAL) 16 % (0-8); LYMPHOCYTES % (MANUAL) 17 % (20-40); MONOCYTES % (MANUAL) 4 % (2-10); NEUTROPHILS % (MANUAL) 63 % (42-75); PLATELET ESTIMATE ADEQUATE
[2025-03-30 03:43] LABS: HYPOCHROMASIA 2+
[2025-03-30 04:44] VITALS: BP 117/75; TEMP 98.2; O2SAT 100
[2025-03-30] MEDS ORDERED: VANCOMYCIN IV 500 MG in IV NORMAL SALINE 100 ML IV ONE (06:00)
[2025-03-30] MEDS: PANTOPRAZOLE SODIUM 40 MG TABLET.DR PO SCH (06:48)
[2025-03-30] MEDS: VANCOMYCIN IV 500 MG in IV NORMAL SALINE 100 ML IV ONE (07:37)
[2025-03-30] MEDS ORDERED: DEXTROSE 50% 50 ML DISP.SYRIN IV PRN (08:00)
[2025-03-30] MEDS: CEFEPIME HCL 2 GM in IV DEXTROSE 5% 100 ML IV SCH (08:24)
[2025-03-30] MEDS: BLOOD SUGAR DIAGNOSTIC 1 EACH STRIP VI SCH (10:53)
[2025-03-30] MEDS: INSULIN REGULAR, HUMAN 1000 UNIT/10 ML VIAL SQ PRN (10:56)
[2025-03-30 11:16] VITALS: BP 115/75; TEMP 98.2; O2SAT 99
[2025-03-30] MEDS: NEOMY/BACITRAC/POLYMI OINT 28.35 GM TUBE TOP SCH (12:38)
[2025-03-30 15:04] VITALS: BP 120/75; TEMP 98.2; O2SAT 99
[2025-03-30 19:52] VITALS: BP 117/76; TEMP 97.4; O2SAT 98
[2025-03-30] MEDS: INSULIN GLARGINE,HUM 300 UNITS/3 ML CARTRIDGE SQ SCH (22:32)
[2025-03-30] MEDS: INSULIN REGULAR, HUMAN 300 UNITS/3 ML VIAL SQ PRN (22:33)
[2025-03-31 05:45] VITALS: BP 127/84; TEMP 97.8; O2SAT 97
[2025-03-31 08:08] VITALS: BP 121/77; TEMP 97.7; O2SAT 99
[2025-03-31 10:14] LABS: BASOPHILS # (AUTO) 0.1 K/UL (0.0-0.2); BASOPHILS % (AUTO) 0.6 % (0.0-2.0); EOSINOPHILS # (AUTO) 0.5 K/uL (0.0-0.7); EOSINOPHILS % (AUTO) 5.9 % (0.0-7.0); HEMATOCRIT 32.7 % (36.7-47.1); HEMOGLOBIN 10.2 g/dL (12.5-16.3); LYMPHOCYTES # (AUTO) 1.6 K/uL (0.8-4.8); LYMPHOCYTES % (AUTO) 19.9 % (20.5-51.5); MEAN CORPUSCULAR HEMOGLOBIN 20.6 uug (23.8-33.4); MEAN CORPUSCULAR HGB CONC 31 g/dL (32.5-36.3); MEAN CORPUSCULAR VOLUME 65.7 fL (73.0-96.2); MONOCYTES # (AUTO) 0.7 K/uL (0.1-1.30); MONOCYTES % (AUTO) 8.9 % (0.0-11.0); NEUTROPHILS # (AUTO) 5.3 K/uL (1.8-8.9); NEUTROPHILS % (AUTO) 64.7 % (38.5-71.5); PLATELET COUNT (AUTO) 300 K/uL (152-348); RED BLOOD CELL COUNT(AUTO) 4.98 MIL/uL (4.06-5.63); RED CELL DISTRIBUTION WIDTH 20.2 % (12.1-16.2); WHITE BLOOD COUNT (AUTO) 8.2 K/uL (3.6-10.2)
[2025-03-31 10:20] LABS: DIFFERENTIAL COMMENT 1
[2025-03-31 10:28] LABS: CALCIUM 9.6 mg/dL (8.5-10.1); CREATININE 1.6 mg/dL (0.6-1.3); MAGNESIUM 1.5 mg/dL (1.8-2.4); PHOSPHOROUS 3.7 mg/dL (2.5-4.9); POTASSIUM 4.3 mmol/L (3.5-5.1); VANCOMYCIN,RANDOM 5.6 ug/mL (20.0-30.0)
[2025-03-31] MEDS: VANCOMYCIN IV 1,000 MG in IV DEXTROSE 5% 250 ML IV SCH (11:00)
[2025-03-31 12:02] VITALS: BP 120/83; TEMP 97.6; O2SAT 100
[2025-03-31 16:00] VITALS: BP_SYST 109; BP_SYST 119; BP_DIAS 72; BP_DIAS 76; TEMP 97.8; TEMP 99.3; O2SAT 100; O2SAT 99
[2025-03-31 19:30] VITALS: BP 119/80; TEMP 98.4; O2SAT 99
[2025-04-01 05:00] VITALS: BP 118/69; TEMP 98.1; O2SAT 99
[2025-04-01 07:14] LABS: CALCIUM 9.9 mg/dL (8.5-10.1); CREATININE 1.4 mg/dL (0.6-1.3); POTASSIUM 4.5 mmol/L (3.5-5.1)
[2025-04-01] MEDS: MAGNESIUM SULFATE/D5W 100 ML IV SCH (07:57)
[2025-04-01 11:35] VITALS: BP 112/83; TEMP 98.6; O2SAT 96
[2025-04-01 15:50] VITALS: BP 117/80; TEMP 98.4; O2SAT 100
[2025-04-01 20:00] VITALS: BP 113/86; TEMP 99.3; O2SAT 100
[2025-04-01] MEDS: ACETAMINOPHEN 325 MG TABLET PO PRN (20:38)
[2025-04-01] MEDS: INSULIN GLARGINE,HUM 300 UNITS/3 ML CARTRIDGE SQ SCH (20:44)
[2025-04-02 05:14] VITALS: BP 117/79; TEMP 98.6; O2SAT 99
[2025-04-02 11:46] VITALS: BP 130/80; TEMP 98.6; O2SAT 100
[2025-04-02 14:49] LABS: BASOPHILS # (AUTO) 0.1 K/UL (0.0-0.2); BASOPHILS % (AUTO) 0.8 % (0.0-2.0); EOSINOPHILS # (AUTO) 0.5 K/uL (0.0-0.7); EOSINOPHILS % (AUTO) 4.8 % (0.0-7.0); HEMATOCRIT 33.7 % (36.7-47.1); HEMOGLOBIN 10.6 g/dL (12.5-16.3); LYMPHOCYTES # (AUTO) 1.3 K/uL (0.8-4.8); LYMPHOCYTES % (AUTO) 13.4 % (20.5-51.5); MEAN CORPUSCULAR HEMOGLOBIN 20.3 uug (23.8-33.4); MEAN CORPUSCULAR HGB CONC 31 g/dL (32.5-36.3); MEAN CORPUSCULAR VOLUME 64.9 fL (73.0-96.2); MONOCYTES # (AUTO) 0.9 K/uL (0.1-1.30); MONOCYTES % (AUTO) 9.9 % (0.0-11.0); NEUTROPHILS # (AUTO) 6.7 K/uL (1.8-8.9); NEUTROPHILS % (AUTO) 71.1 % (38.5-71.5); PLATELET COUNT (AUTO) 332 K/uL (152-348); RED CELL DISTRIBUTION WIDTH 20.3 % (12.1-16.2); WHITE BLOOD COUNT (AUTO) 9.5 K/uL (3.6-10.2)
[2025-04-02 15:01] LABS: CALCIUM 9.5 mg/dL (8.5-10.1); CREATININE 1.3 mg/dL (0.6-1.3); MAGNESIUM 1.6 mg/dL (1.8-2.4); PHOSPHOROUS 2.9 mg/dL (2.5-4.9); POTASSIUM 4.3 mmol/L (3.5-5.1); VANCOMYCIN,TROUGH 11.8 ug/mL (10.0-20.0)
[2025-04-02 16:08] LABS: DIFFERENTIAL COMMENT 1
== END 2025-04-02 15:50 | disposition left against medical advice (07) | DRG 364 ==
LOC: ER 23:26 → MEDSURG3 03-30 03:00
PROVIDERS: ADMIT Nurse Practitioner Family; ATTEND Internal Medicine
PROC: 0KBD0ZZ Excision of Left Hand Muscle, Open Approach (ICD-10-PCS; principal; 2025-03-30)
PROC: 05HB33Z Insertion of Infusion Device into Right Basilic Vein, Percutaneous Approach (ICD-10-PCS; 2025-03-31)
DX: L03.114 Cellulitis of left upper limb (principal); N17.0 Acute kidney failure with tubular necrosis; E11.65 Type 2 diabetes mellitus with hyperglycemia; B95.61 Methicillin susceptible Staphylococcus aureus infection as the cause of diseases classified elsewhere; D50.9 Iron deficiency anemia, unspecified; F10.10 Alcohol abuse, uncomplicated; S61.412A Laceration without foreign body of left hand, initial encounter; F17.210 Nicotine dependence, cigarettes, uncomplicated; F32.A Depression, unspecified; J44.89 Other specified chronic obstructive pulmonary disease; Z59.02 Unsheltered homelessness; Z16.11 Resistance to penicillins; W45.8XXA Other foreign body or object entering through skin, initial encounter; Y93.89 Activity, other specified; Z53.29 Procedure and treatment not carried out because of patient's decision for other reasons; F19.10 Other psychoactive substance abuse, uncomplicated
CPT/HCPCS: 36415; 83735; 84100; 84484; 85025; 85730; A4663; G0378; J0692; J1815; J3370; J3475; J7050